=== PATIENT | female | born 1980 | race American Indian/Alaskan Native ===

== ENCOUNTER 2017-12-30 22:53 | Emergency (ER) | payer MEDICAID, OTHER ==
--- NOTE | 2017-12-31 00:35 | EDM.PDOC ---
ED HPI GENERAL MEDICAL PROBLEM - General Chief Complaint: Abdominal Pain Stated Complaint: ABD PAIN Time Seen by Provider: 12/31/17 00:05 Source of Information: Reports: Patient, Family (Sister Diamond Stewart) History Limitations: Reports: No Limitations - History of Present Illness INITIAL COMMENTS - FREE TEXT/NARRATIVE: abdominal pain; This is a 37 year old female present to ER for evaluation of abdominal pain for the past 3 days. She reports just left [facility] ER for same complaints, not satisfied with care. now here for a re-evaluation. Left [place] at 21:15pm. At [place] she had labs work , a CT scan of abdomen - pelvis, IV fluids and medications. She reports all results were normal. Duration: Day(s): (three) Location: Reports: Abdomen Quality: Reports: Same as Previous Episode Severity: Moderate Improves with: Reports: None Worsens with: Reports: None Associated Symptoms: Reports: Other (had blood on tissue two days ago. 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.) Abdominal Pain Score (Numeric/FACES): 7 - Related Data Allergies Allergy/AdvReac Type Severity Reaction Status Date / Time bupropion [From Wellbutrin] Allergy Depression Verified 12/30/17 23:44 gabapentin Allergy Swollen Verified 12/30/17 23:44 Tongue ketorolac [From Toradol] Allergy Swollen Verified 12/30/17 23:44 Tongue NSAIDS (Non-Steroidal Allergy Swollen Verified 12/30/17 23:44 Anti-Inflamma Tongue varenicline [From Chantix] Allergy Depression Verified 12/30/17 23:44 Home Meds: Home Meds Methadone [Methadone Intensol] 120 mg PO DAILY 12/30/17 [History] Nicotine Polacrilex [Nicorette] 1 tab PO Q2HR 12/30/17 [History] Nicotine [Nicotine Patch] 1 patch TOP DAILY 12/30/17 [History] Past Medical History Cardiovascular History: Reports: Other (See Below) Other Cardiovascular History: bradycardia Gastrointestinal History: Reports: Other (See Below) Other Gastrointestinal History: lap band placed Genitourinary History: Reports: Other (See Below) Other Genitourinary History: bladder reconstruction 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: Reports: Polycystic Ovaries, Psychiatric History: Reports: ADD, Anxiety, Depression - Past Surgical History GI Surgical History: Reports: Cholecystectomy Female Surgical History: Reports: Section, Hysterectomy Musculoskeletal Surgical History: Reports: Other (See Below) Other Musculoskeletal Surgeries/Procedures:: acl reconstruction Social & Family History - Family History Family Medical History: Noncontributory - Tobacco Use Smoking Status *Q: Current Every Day Smoker Years of Tobacco use: 25 Packs/Tins Daily: 0.5 - Caffeine Use Caffeine Use: Reports: Soda - Recreational Drug Use Recreational Drug Use: No ED ROS GENERAL - Review of Systems Review Of Systems: See Below Constitutional: Reports: Other (abdominal pain) HEENT: Reports: No Symptoms Respiratory: Reports: No Symptoms Cardiovascular: Reports: No Symptoms Endocrine: Reports: No Symptoms GI/Abdominal: Reports: Abdominal Pain, Bloody Stool (two days ago. none since. Pt reports absolutely no rectal exam, declines exam.) : Reports: No Symptoms, Other (hysterectomy) Musculoskeletal: Reports: No Symptoms Skin: Reports: No Symptoms Neurological: Reports: No Symptoms Psychiatric: Reports: No Symptoms Hematologic/Lymphatic: Reports: No Symptoms Immunologic: Reports: No Symptoms ED EXAM, GI/ABD - Physical Exam Exam: See Below Exam Limited By: No Limitations General Appearance: Alert, WD/WN, No Apparent Distress, Obese, Other (patient laughing and joking with Sister prior to exam.) Eyes: Bilateral: Normal Appearance Ears: Normal External Exam Nose: Normal Inspection, Normal Mucosa, No Blood Throat/Mouth: Normal Inspection, Normal Lips, Normal Teeth Head: Atraumatic, Normocephalic Neck: Normal Inspection, Supple, Non-Tender, Full Range of Motion Respiratory/Chest: No Respiratory Distress, Lungs Clear, Normal Breath Sounds, No Accessory Muscle Use, Chest Non-Tender Cardiovascular: Normal Peripheral Pulses, Regular Rate, Rhythm, No Edema GI/Abdominal Exam: Normal Bowel Sounds, Soft, Tender (patient with pain with light palpation are quadrants of abdomen. then when distracted, palpation is pain free.) (Female) Exam: Other (declines any exam) Rectal (Female) Exam: Other (declines any exam ) Back Exam: Normal Inspection Extremities: Normal Inspection, Normal Range of Motion, Non-Tender, Normal Capillary Refill, No Pedal Edema Neurological: No Motor/Sensory Deficits Psychiatric: Normal Affect, Normal Mood Skin Exam: Warm, Dry, Intact, Normal Color, No Rash Lymphatic: No Adenopathy Course - Vital Signs Last Recorded V/S: Last Vital Signs Temp 36.7 C 12/30/17 23:47 Pulse 60 12/30/17 23:47 Resp 14 12/30/17 23:47 BP 123/54 L 12/30/17 23:47 Pulse Ox 98 12/30/17 23:47 - Orders/Labs/Meds Meds: Medications Discontinued Medications Generic Name Dose Route Start Last Admin Trade Name Freq PRN Reason Stop Dose Admin Ceftriaxone Sodium 1 gm/ 0 gm 12/31/17 01:11 Lidocaine HCl 2.1 ml IM 12/31/17 01:12 ONETIME ONE - Re-Assessments/Exams Free Text/Narrative Re-Assessment/Exam: 12/31/17 00:44 discussed with Navya, will need to get reports from [facility] , will review with and give her copy of her scan. But if all is negative, can treat abdominal pain with vistaril or zofran. but will need to wait for reports. They agree with plan of care. 12/31/17 01:16 recieved report from [facility] -urine +leukocytes +nitrates +protein -urine drug screen negative -cbc normal limits -chemistry negative CT scan of abdomen-pelvis; negative except for large fatty liver reviewed all labs and imaging with Navya. fax copies given to patient for her home file will treat for bladder infection and nausea. they seemed satisfied with care, all questions answered. Departure - Departure Time of Disposition: 01:13 Disposition: Home, Self-Care 01 Condition: Good Clinical Impression: Urinary tract infection Qualifiers: Urinary tract infection type: site unspecified Hematuria presence: without hematuria Qualified Code(s): N39.0 - Urinary tract infection, site not specified - Discharge Information *PRESCRIPTION DRUG MONITORING PROGRAM REVIEWED*: Not Applicable *COPY OF PRESCRIPTION DRUG MONITORING REPORT IN PATIENT DEV: Not Applicable Instructions: Urinary Tract Infection, Adult, [id number] Referrals: PCP,None [Primary Care Provider] - Forms: ED Department Discharge Care Plan Goals: Urinary Tract Infection -Rocephin 1 gram IM -Keflex 500mg po bid x 10 days -Zofran 4 mg odt every 8 hours prn nausea return to Clinic or ER if not improved or symptoms worsen. follow up with Primary Care for recheck - Problem List & Annotations (1) Urinary tract infection SNOMED Code(s): 80193415 Code(s): N39.0 - URINARY TRACT INFECTION, SITE NOT SPECIFIED Status: Acute Priority: Medium Current Visit: Yes Qualifiers: Urinary tract infection type: site unspecified Hematuria presence: without hematuria Qualified Code(s): N39.0 - Urinary tract infection, site not specified - Problem List Review Problem List Initiated/Reviewed/Updated: Yes - Assessment/Plan Plan: Urinary Tract Infection -Rocephin 1 gram IM -Keflex 500mg po bid x 10 days -Zofran 4 mg odt every 8 hours prn nausea return to Clinic or ER if not improved or symptoms worsen. follow up with Primary Care for recheck
[2017-12-31] MEDS ORDERED: cefTRIAXone 1 GM, Lidocaine 1% 2.1 ML IM ONE ×2 (01:11)
== END 2017-12-31 01:50 | disposition home or self-care (01) ==
LOC: JP.ED 22:53
DX: N39.0 Urinary tract infection, site not specified (principal); Z88.5 Allergy status to narcotic agent; Z88.8 Allergy status to other drugs, medicaments and biological substances; Z79.899 Other long term (current) drug therapy
CPT/HCPCS: 96372; 99284; J0696

== ENCOUNTER 2018-11-28 20:55 | Emergency (ER) | payer MEDICAID ==
[2018-11-28] MEDS ORDERED: Lidocaine 1% with EPINEPHrine 1:100,000 50 ML MDV SUBCUT STA (21:50)
--- NOTE | 2018-11-28 21:53 | EDM.PDOC ---
ED HPI GENERAL MEDICAL PROBLEM - General Chief Complaint: Bite:Animal, Insect Stated Complaint: BUG BITE ON ARM Time Seen by Provider: 11/28/18 21:46 Source of Information: Reports: Patient, RN Notes Reviewed History Limitations: Reports: No Limitations - History of Present Illness INITIAL COMMENTS - FREE TEXT/NARRATIVE: 38-year-old female presents emergency department today complaint of painful red right arm, she was evaluated emergency department [facility] felt to have a local cellulitis was treated with IV antibiotics oral prescription for Augmentin was written unfortunately she was not able to fill the prescription, the swelling in her arm has increased in size and tenderness difficult to move her right arm because of the pain, denies any fevers Right Middle Arm Pain Score (Numeric/FACES): 5 - Related Data Allergies Allergy/AdvReac Type Severity Reaction Status Date / Time bupropion [From Wellbutrin] Allergy Depression Verified 12/30/17 23:44 gabapentin Allergy Swollen Verified 12/30/17 23:44 Tongue ketorolac [From Toradol] Allergy Swollen Verified 12/30/17 23:44 Tongue NSAIDS (Non-Steroidal Allergy Swollen Verified 12/30/17 23:44 Anti-Inflamma Tongue varenicline [From Chantix] Allergy Depression Verified 12/30/17 23:44 Home Meds: Home Meds Methadone [Methadone Intensol] 120 mg PO DAILY 12/30/17 [History] Nicotine Polacrilex [Nicorette] 1 tab PO Q2HR PRN 12/30/17 [History] Nicotine [Nicotine Patch] 1 patch TOP DAILY 12/30/17 [History] Past Medical History Cardiovascular History: Reports: Other (See Below) Other Cardiovascular History: bradycardia Gastrointestinal History: Reports: Other (See Below) Other Gastrointestinal History: lap band placed Genitourinary History: Reports: Other (See Below) Other Genitourinary History: bladder reconstruction 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: Polycystic Ovaries, Psychiatric History: Reports: ADD, Anxiety, Depression - Past Surgical History GI Surgical History: Reports: Cholecystectomy Female Surgical History: Reports: Section, Hysterectomy Musculoskeletal Surgical History: Reports: Other (See Below) Other Musculoskeletal Surgeries/Procedures:: acl reconstruction Social & Family History - Family History Family Medical History: Noncontributory - Tobacco Use Smoking Status *Q: Current Some Day Smoker Years of Tobacco use: 18 Packs/Tins Daily: 0.5 Used Tobacco, but Quit: No - Caffeine Use Caffeine Use: Reports: Coffee, Soda - Recreational Drug Use Recreational Drug Use: No ED ROS GENERAL - Review of Systems Review Of Systems: See Below Constitutional: Denies: Fever, Chills HEENT: Reports: No Symptoms Respiratory: Reports: No Symptoms Cardiovascular: Reports: Dyspnea on Exertion GI/Abdominal: Reports: No Symptoms Skin: Reports: Erythema, Wound ED EXAM, ANIMAL BITE - Physical Exam Exam: See Below Text/Narrative:: Examination the right arm there is a large erythematous area approximately the size of a softball there is a sudden edematous raised firm area underneath that about size of a golf ball consistent with abscess is tender to touch warm to the touch Exam Limited By: No Limitations General Appearance: Alert, WD/WN, No Apparent Distress ED ANIMAL BITE PROCEDURES - I&D Site: Right arm Skin Prep: Isopropyl Alcohol (Alcohol) Local Anesthesia: Lidocaine: 1% with EPI Local Anesthetic Volume: 2cc Area Incised With: 11 Blade Drainage: Purulent, Bloody, Moderate Amount Probed to Break Up Loculations: Yes Packed With: None Sterile Dressinx4(s) Complications: No Course - Vital Signs Last Recorded V/S: Last Vital Signs Temp 98.1 F 11/28/18 21:37 Pulse 67 11/28/18 21:37 Resp 18 11/28/18 21:37 BP 137/66 11/28/18 21:37 Pulse Ox 97 11/28/18 21:37 - Orders/Labs/Meds Meds: Medications Discontinued Medications Generic Name Dose Route Start Last Admin Trade Name Gayatri PRN Reason Stop Dose Admin Lidocaine/Epinephrine 20 ml 11/28/18 21:50 Xylocaine 1% With Epinephrine 1:100,000 SUBCUT 11/28/18 21:51 NOW STA Departure - Departure Time of Disposition: 22:21 Disposition: Home, Self-Care 01 Condition: Fair Clinical Impression: Abscess of right arm - Discharge Information Instructions: Skin Abscess, [id number] Referrals: PCP,None [Primary Care Provider] - Forms: ED Department Discharge Additional Instructions: Fill the antibiotics that were provided by [facility] take full course follow-up primary care in the next 3-5 days for reevaluation call or return to the emergency department worsening of symptoms - Assessment/Plan Plan: Assessment Acuity = acute Site and laterality = right arm abscess Etiology = bacterial cause Manifestations = none Location of injury = Home Lab values = [none Plan She will fill the antibiotics that were provided from [facility] follow-up primary care 3-5 days for reevaluation This note was dictated using [employer] Mobile voice recognition software please call with any questions on syntax or grammar.
== END 2018-11-28 22:29 | disposition home or self-care (01) ==
LOC: JP.ED 20:55
DX: L02.413 Cutaneous abscess of right upper limb (principal); B96.89 Other specified bacterial agents as the cause of diseases classified elsewhere; F17.210 Nicotine dependence, cigarettes, uncomplicated; F41.9 Anxiety disorder, unspecified; F32.9 Major depressive disorder, single episode, unspecified; Z79.899 Other long term (current) drug therapy; Z88.8 Allergy status to other drugs, medicaments and biological substances
CPT/HCPCS: 10060; 99282-25